=== PATIENT | female | born 1945 ===

== ENCOUNTER 2020-10-27 08:07 | Inpatient (IN) ==
[2020-10-27] MEDS ORDERED: NS 0.9% 1000 ml BAG 1,000 ML IV ONE (08:47)
[2020-10-27 09:07] LABS: ABS Lymphocytes 1.4 10^3/ul (1.0-4.8); ABS Monocytes 0.4 10^3/ul (0-0.8); ABS Neutrophils 6.8 10^3/ul (1.5-7.7); Eosinophil % 0.2 %; Hematocrit 43 % (35-47); Hemoglobin 14.5 g/dL (12.0-16.0); Lymphocyte % 16.3 %; Mean Corpuscular HGB Conc 34 g/dL (31-36); Mean Corpuscular Hemoglobin 28 pg (27-31); Mean Corpuscular Volume 83 fL (80-97); Mean Platelet Volume 9.4 fL (7.4-10.4); Platelet Count 255 10^3/uL (150-450); Red Blood Count 5.17 10^6 /uL (3.70-4.87); Red Cell Distribution Width 14 % (10-15); White Blood Count 8.6 10^3/uL (3.5-10.8)
[2020-10-27 09:18] LABS: Albumin 4.3 g/dL (3.2-5.2); Albumin/Globulin Ratio 1.7 (1-3); Calcium 8.9 mg/dL (8.6-10.3); EGFR African American 86.1 (>60); EGFR Non-African American 71.1 (>60); Globulin 2.5 g/dL (2-4); Potassium 3.2 mmol/L (3.5-5.0); Total Bilirubin 0.7 mg/dL (0.2-1.0); Total Protein 6.8 g/dL (6.4-8.9)
[2020-10-27 09:33] LABS: TSH Ultra Thyroid Stim Horm 2.09 mcIU/mL (0.34-5.60)
[2020-10-27 10:24] LABS: Urine Appearance Clear; Urine Bilirubin Negative (Negative); Urine Blood Negative (Negative); Urine Color Yellow; Urine Glucose Negative (Negative); Urine Ketones Negative (Negative); Urine Nitrite Negative (Negative); Urine Protein Negative (Negative); Urine Specific Gravity 1.008 (1.010-1.030); Urine Urobilinogen Negative (Negative)
[2020-10-27 10:41] LABS: Urine Bacteria Absent (Absent); Urine Red Blood Cell Absent (Absent); Urine White Blood Cell Trace(0-5/hpf) (Absent)
[2020-10-27] MEDS ORDERED: Ondansetron 4 mg VIAL 2 MG/ML 2 ml VIAL IV PRN (14:20)
[2020-10-27] MEDS ORDERED: Iohexol 300 (CONTRAST) 10 ML SDV IV ONE (15:40)
[2020-10-27] MEDS ORDERED: Gadoteridol (CONTRAST) 279.3 MG/ML 10 ML IV ONE (16:02)
[2020-10-27] MEDS: Enoxaparin 40 MG/0.4 ML SYR SUBCUT SCH (16:43)
[2020-10-27] MEDS ORDERED: Potassium Chlor 20 meq TAB.ER PO ONE (16:48)
[2020-10-28 06:15] LABS: ABS Eosinophils 0.2 10^3/ul (0-0.6); ABS Lymphocytes 2.6 10^3/ul (1.0-4.8); ABS Monocytes 0.8 10^3/ul (0-0.8); ABS Neutrophils 4.6 10^3/ul (1.5-7.7); Eosinophil % 2.8 %; Hematocrit 42 % (35-47); Hemoglobin 14.1 g/dL (12.0-16.0); Lymphocyte % 31.2 %; Mean Corpuscular HGB Conc 34 g/dL (31-36); Mean Corpuscular Hemoglobin 28 pg (27-31); Mean Corpuscular Volume 83 fL (80-97); Mean Platelet Volume 9.6 fL (7.4-10.4); Platelet Count 231 10^3/uL (150-450); Red Cell Distribution Width 15 % (10-15); White Blood Count 8.2 10^3/uL (3.5-10.8)
[2020-10-28 06:30] LABS: BUN/Creatinine Ratio 11.4 (8-20); Calcium 8.8 mg/dL (8.6-10.3); EGFR African American 86.1 (>60); EGFR Non-African American 71.1 (>60); Potassium 3.5 mmol/L (3.5-5.0)
[2020-10-28] MEDS: Cholecalciferol (VIT D3) 1,000 unit TAB PO SCH (09:37)
[2020-10-28] MEDS: Enoxaparin 40 MG/0.4 ML SYR SUBCUT SCH (14:52)
[2020-10-29 06:01] LABS: Activated Partial Thrombo Time 34.8 seconds (26.0-38.0)
[2020-10-29] MEDS: Cholecalciferol (VIT D3) 1,000 unit TAB PO SCH (09:41)
[2020-10-29 11:03] LABS: INR 1.07 (0.82-1.09)
[2020-10-29] MEDS: Enoxaparin 40 MG/0.4 ML SYR SUBCUT SCH (16:52)
[2020-10-30] MEDS: Cholecalciferol (VIT D3) 1,000 unit TAB PO SCH (09:39)
[2020-10-30 15:19] VITALS: BP 134/68
[2020-10-30] MEDS: Enoxaparin 40 MG/0.4 ML SYR SUBCUT SCH (16:07)
== END 2020-10-30 17:00 | disposition home or self-care (01) | DRG 72 ==
LOC: ED 08:07 → SSU 12:23
PROVIDERS: ADMIT Student in an Organized Health Care Education/Training Program; ATTEND Student in an Organized Health Care Education/Training Program

== ENCOUNTER 2020-11-05 10:41 | Inpatient (IN) ==
[~2020-11-05 10:41] MED LIST: Buffered Lidocaine 1% SYRIN 1 ml INTRADERM ONE; Lactated Ringers 1000 ml BAG 1,000 ML IV SCH; Vancomycin 1,000 MG in NS 0.9% 250 ml 250 ML IVPB SCH
[2020-11-05] MEDS ORDERED: Buffered Lidocaine 1% SYRIN 1 ml INTRADERM ONE (12:50)
[2020-11-05] MEDS ORDERED: Lidocaine 1% w EPI 1:100,000 MDV 20 ML VIAL ONE (13:37)
[2020-11-05] MEDS ORDERED: Lidocaine 1% w EPI 1:200,000 SDV 30 ML VIAL ONE (13:37)
[2020-11-05] MEDS ORDERED: Lidocaine 1.5% EPI 1:200,000 30 ML SDV ONE (13:37)
[2020-11-05] MEDS ORDERED: Thrombin 5,000 UNITS 1 APPLIC KIT - topical use - TOPICAL ONE ×4 (13:37→20:36)
[2020-11-05] MEDS ORDERED: Bacitracin INJECTION 50,000 UNITS ONE ×5 (13:38→20:36)
[2020-11-05] MEDS ORDERED: Bacitracin OINTMENT TUBE ONE (14:04)
[2020-11-05] MEDS ORDERED: Mannitol 25% (12.5 GM) 50 ML 12.5 GM/50 ML VIAL ONE ×2 (14:04→14:07)
[2020-11-05] MEDS ORDERED: Propofol 10 mg/ml 100 ML BTL 300 ML ONE (14:06)
[2020-11-05] MEDS ORDERED: niCARdipine 0.1MG/ML 200 ML IVPREMIX IV ONE (14:07)
[2020-11-05] MEDS ORDERED: fentaNYL 250 mcg/5 ml 50 MCG/ML 5 ml VIAL (250 MCG) ONE ×3 (14:13→18:21)
[2020-11-05] MEDS ORDERED: Gelfoam Sponge SIZE 100 SPONGE ONE ×2 (14:17→18:32)
[2020-11-05] MEDS ORDERED: Dexamethasone IV 4 MG/ML VIAL 1 ml VIAL ONE ×2 (14:21→16:12)
[2020-11-05] MEDS ORDERED: Lidocaine 2% PF 5 ML VIAL ONE (15:56)
[2020-11-05] MEDS ORDERED: levETIRAcetam IV 500 MG/5 ML VIAL ONE (17:22)
[2020-11-05] MEDS ORDERED: Propofol 10 mg/ml 100 ML BTL 200 ML ONE (18:49)
[2020-11-05] MEDS ORDERED: Propofol 10 mg/ml 100 ML BTL 400 ML ONE (18:49)
[2020-11-05] MEDS ORDERED: Naloxone 0.4 mg VIAL 0.4 mg/ml 1 ml VIAL IV PRN (21:18)
[2020-11-05] MEDS ORDERED: diPHENhydraMINE IV 50 MG/ML 1 ml VIAL (BENADRYL) IV PRN (21:18)
[2020-11-05] MEDS ORDERED: fentaNYL 100 mcg/2 ml 50 MCG/ML VIAL IV PRN (21:18)
[2020-11-05] MEDS ORDERED: Ondansetron 4 mg VIAL 2 MG/ML 2 ml VIAL ONE (21:19)
[2020-11-05] MEDS ORDERED: Acetaminophen IV 1 GM/100ML 100 ML ONE (21:24)
[2020-11-05] MEDS ORDERED: Metoprolol Tartrate 5 mg VIAL 5 ml VIAL (1 mg/ml) ONE (21:42)
[2020-11-05] MEDS ORDERED: HYDROcodone/ACETAMIN 5/325 mg TAB PO PRN ×2 (22:50)
[2020-11-05 22:59] LABS: ABS Lymphocytes 0.7 10^3/ul (1.0-4.8); ABS Monocytes 0.3 10^3/ul (0-0.8); Eosinophil % 0.1 %; Hematocrit 37 % (35-47); Hemoglobin 12.3 g/dL (12.0-16.0); Lymphocyte % 6.4 %; Mean Corpuscular HGB Conc 34 g/dL (31-36); Mean Corpuscular Hemoglobin 28 pg (27-31); Mean Corpuscular Volume 83 fL (80-97); Mean Platelet Volume 9.6 fL (7.4-10.4); Platelet Count 211 10^3/uL (150-450); Red Blood Count 4.41 10^6 /uL (3.70-4.87); Red Cell Distribution Width 14 % (10-15)
[2020-11-05 23:15] LABS: BUN/Creatinine Ratio 8.7 (8-20); Calcium 7.7 mg/dL (8.6-10.3); EGFR African American 100.6 (>60); EGFR Non-African American 83.2 (>60); Magnesium 1.9 mg/dL (1.9-2.7); Phosphorus 3.1 mg/dL (2.5-5.0); Potassium 3.3 mmol/L (3.5-5.0)
[2020-11-05] MEDS: niCARdipine 0.1MG/ML IVPREMIX 20 MG/200 ML BAG IV SCH (23:52)
[2020-11-05] MEDS: Lactated Ringers 1000 ml BAG 1,000 ML IV SCH (23:53)
[2020-11-06 00:14] LABS: ABS Lymphocytes 0.9 10^3/ul (1.0-4.8); ABS Monocytes 0.3 10^3/ul (0-0.8); ABS Neutrophils 12.3 10^3/ul (1.5-7.7); Eosinophil % 0.1 %; Hematocrit 39 % (35-47); Hemoglobin 12.9 g/dL (12.0-16.0); Lymphocyte % 6.5 %; Mean Corpuscular HGB Conc 33 g/dL (31-36); Mean Corpuscular Hemoglobin 28 pg (27-31); Mean Corpuscular Volume 84 fL (80-97); Mean Platelet Volume 9.3 fL (7.4-10.4); Platelet Count 234 10^3/uL (150-450); Red Blood Count 4.61 10^6 /uL (3.70-4.87); Red Cell Distribution Width 15 % (10-15); White Blood Count 13.5 10^3/uL (3.5-10.8)
[2020-11-06 00:29] LABS: Activated Partial Thrombo Time 30.1 seconds (26.0-38.0); INR 1.06 (0.82-1.09)
[2020-11-06 00:33] LABS: BUN/Creatinine Ratio 8.7 (8-20); Calcium 7.8 mg/dL (8.6-10.3); EGFR African American 100.6 (>60); EGFR Non-African American 83.2 (>60); Magnesium 1.8 mg/dL (1.9-2.7); Phosphorus 2.1 mg/dL (2.5-5.0); Potassium 3.1 mmol/L (3.5-5.0)
[2020-11-06] MEDS: Morphine 2 MG/ML SYRINGE IV PRN ×2 (01:11→04:39)
[2020-11-06] MEDS: Ondansetron 4 mg VIAL 2 MG/ML 2 ml VIAL IV PRN ×4 (01:12→15:06)
[2020-11-06 01:21] LABS: Urine Appearance Clear; Urine Bilirubin Negative (Negative); Urine Blood Negative (Negative); Urine Color Straw; Urine Glucose 1+(50 mg/dL) (Negative); Urine Ketones Trace (Negative); Urine Nitrite Negative (Negative); Urine Protein Negative (Negative); Urine Specific Gravity 1.012 (1.010-1.030); Urine Urobilinogen Negative (Negative)
[2020-11-06] MEDS ORDERED: Magnesium Sulfate 2 gm BAG 2 GM/50 ML BAG IVPB ONE ×2 (03:01→11:46)
[2020-11-06] MEDS: KCL 20 MEQ/100 ML IVPREMIX 20 MEQ/100 ML BAG IV SCH ×4 (04:41→14:06)
[2020-11-06] MEDS ORDERED: HYDROmorphone 0.5 MG/0.5 ML SYRINGE IV ONE ×2 (05:22→10:22)
[2020-11-06] MEDS: niCARdipine 0.1MG/ML IVPREMIX 20 MG/200 ML BAG IV SCH ×7 (05:49→23:22)
[2020-11-06] MEDS ORDERED: Cholecalciferol (VIT D3) 1,000 unit TAB PO SCH (09:00)
[2020-11-06] MEDS ORDERED: Gadoteridol (CONTRAST) 279.3 MG/ML 10 ML IV ONE (10:15)
[2020-11-06 10:45] LABS: ABS Lymphocytes 0.8 10^3/ul (1.0-4.8); ABS Neutrophils 17.6 10^3/ul (1.5-7.7); Hematocrit 38 % (35-47); Hemoglobin 12.5 g/dL (12.0-16.0); Mean Corpuscular HGB Conc 33 g/dL (31-36); Mean Corpuscular Hemoglobin 27 pg (27-31); Mean Corpuscular Volume 84 fL (80-97); Mean Platelet Volume 9.2 fL (7.4-10.4); Platelet Count 220 10^3/uL (150-450); Red Blood Count 4.55 10^6 /uL (3.70-4.87); Red Cell Distribution Width 14 % (10-15); White Blood Count 19.4 10^3/uL (3.5-10.8)
[2020-11-06 11:33] LABS: BUN/Creatinine Ratio 13.2 (8-20); Calcium 7.2 mg/dL (8.6-10.3); EGFR African American 136.4 (>60); EGFR Non-African American 112.8 (>60); Magnesium 2.4 mg/dL (1.9-2.7); Potassium 3.3 mmol/L (3.5-5.0)
[2020-11-06] MEDS ORDERED: Potassium Phosphate IV 10 MMOLE in NS 0.9% 250 ml 250 ML IVPB ONE (11:46)
[2020-11-06] MEDS: Pantoprazole VIAL 40 MG VIAL IV SCH (11:46)
[2020-11-06] MEDS: Lactated Ringers 1000 ml BAG 1,000 ML IV SCH (15:14)
[2020-11-06] MEDS ORDERED: Acetaminophen IV 1 GM/100ML 1,000 MG/100 ML VIAL IVPB ONE (18:21)
[2020-11-06] MEDS ORDERED: Dexamethasone IV 4 MG/ML VIAL 1 ml VIAL IV SLOW PU SCH (18:30)
[2020-11-06] MEDS: Dexamethasone IV 4 MG/ML VIAL 1 ml VIAL IV SLOW PU SCH (21:03)
[2020-11-06] MEDS: levETIRAcetam 500 MG/100 ML IV SCH (21:03)
[2020-11-06 21:05] LABS: BUN/Creatinine Ratio 12.7 (8-20); Calcium 7.2 mg/dL (8.6-10.3); EGFR African American 111.8 (>60); EGFR Non-African American 92.4 (>60); Potassium 3.7 mmol/L (3.5-5.0)
[2020-11-07] MEDS: niCARdipine 0.1MG/ML IVPREMIX 20 MG/200 ML BAG IV SCH (02:03)
[2020-11-07 04:50] LABS: ABS Lymphocytes 0.7 10^3/ul (1.0-4.8); ABS Monocytes 0.6 10^3/ul (0-0.8); ABS Neutrophils 18.8 10^3/ul (1.5-7.7); Hematocrit 35 % (35-47); Hemoglobin 11.5 g/dL (12.0-16.0); Lymphocyte % 3.4 %; Mean Corpuscular HGB Conc 33 g/dL (31-36); Mean Corpuscular Hemoglobin 27 pg (27-31); Mean Corpuscular Volume 83 fL (80-97); Mean Platelet Volume 9.5 fL (7.4-10.4); Platelet Count 221 10^3/uL (150-450); Red Cell Distribution Width 15 % (10-15)
[2020-11-07 05:08] LABS: BUN/Creatinine Ratio 16.9 (8-20); Calcium 7.2 mg/dL (8.6-10.3); EGFR African American 107.8 (>60); EGFR Non-African American 89.1 (>60); Magnesium 2.2 mg/dL (1.9-2.7); Potassium 3.7 mmol/L (3.5-5.0)
[2020-11-07] MEDS: Lactated Ringers 1000 ml BAG 1,000 ML IV SCH (05:37)
[2020-11-07] MEDS ORDERED: Potassium Phosphate IV 15 MMOLE in NS 0.9% 250 ml 250 ML IVPB ONE (06:00)
[2020-11-07] MEDS ORDERED: Morphine 2 MG/ML SYRINGE IV PRN (08:11)
[2020-11-07] MEDS: Pantoprazole VIAL 40 MG VIAL IV SCH (09:17)
[2020-11-07] MEDS: levETIRAcetam 500 MG/100 ML IV SCH (09:17)
[2020-11-07] MEDS: Dexamethasone IV 4 MG/ML VIAL 1 ml VIAL IV SLOW PU SCH ×2 (09:17→21:12)
[2020-11-08 05:51] LABS: ABS Monocytes 0.8 10^3/ul (0-0.8); ABS Neutrophils 17.1 10^3/ul (1.5-7.7); Hematocrit 37 % (35-47); Hemoglobin 12.1 g/dL (12.0-16.0); Lymphocyte % 5.1 %; Mean Corpuscular HGB Conc 33 g/dL (31-36); Mean Corpuscular Hemoglobin 28 pg (27-31); Mean Corpuscular Volume 84 fL (80-97); Mean Platelet Volume 9.5 fL (7.4-10.4); Platelet Count 233 10^3/uL (150-450); Red Blood Count 4.37 10^6 /uL (3.70-4.87); Red Cell Distribution Width 15 % (10-15); White Blood Count 18.9 10^3/uL (3.5-10.8)
[2020-11-08 06:10] LABS: BUN/Creatinine Ratio 24.6 (8-20); Calcium 7.7 mg/dL (8.6-10.3); EGFR African American 100.6 (>60); EGFR Non-African American 83.2 (>60); Magnesium 2.5 mg/dL (1.9-2.7); Phosphorus 2.2 mg/dL (2.5-5.0); Potassium 3.6 mmol/L (3.5-5.0)
[2020-11-08] MEDS: KCL 10 MEQ/50 ML IVPREMIX 10 MEQ/50 ML BAG IV SCH ×3 (07:52→12:32)
[2020-11-08] MEDS: Pantoprazole VIAL 40 MG VIAL IV SCH (10:16)
[2020-11-08] MEDS ORDERED: Magnesium Hydroxide LIQ 30 ML UDC PO ONE (10:21)
[2020-11-08] MEDS ORDERED: Senna TAB 8.6 mg TAB PO PRN (10:21)
[2020-11-08] MEDS: Dexamethasone IV 4 MG/ML VIAL 1 ml VIAL IV SLOW PU SCH (10:23)
[2020-11-08] MEDS ORDERED: Magnesium Hydroxide LIQ 30 ML UDC PO PRN (22:24)
[2020-11-09 11:30] VITALS: BP 141/71
== END 2020-11-09 15:25 | disposition home health service (06) | DRG 25 ==
LOC: AA 10:41 → ICU 23:26 → SSU 11-07 17:57
PROVIDERS: ADMIT Neurological Surgery; ATTEND Neurological Surgery